=== PATIENT | male | born 1995 | race Caucasian/White ===

== ENCOUNTER → 2022-03-06 09:30 | Outpatient (CLI) | payer OTHER, SELFPAY ==
--- NOTE | 2022-03-06 09:44 | XR_ITS ---
FINAL REPORT CLINICAL HISTORY: RT WRIST FX FINDINGS: 3 views of the right wrist were obtained. There is no acute fracture or dislocation. The joint spaces are intact. There is a well corticated os ossific density distal to the ulna measuring up to 6 mm. IMPRESSION: No acute abnormality. Reviewed, Interpreted and Dictated by Tyler Rodriguez MD Transcribed by Albert Kraft Authenticated and [facility]
== END ==
PROVIDERS: Visit Provider Chiropractor
DX: S62.91XA Unspecified fracture of right hand, initial encounter for closed fracture (principal)
CPT/HCPCS: 73110